=== PATIENT | female | born 1995 | race Caucasian/White ===

== ENCOUNTER → 2022-04-29 | Outpatient (CLI) | payer OTHER ==
--- NOTE | 2022-04-29 15:39 | Diagnostic Imaging Report ---
INDICATION: Jammed fourth finger. TIME OF EXAM: 2:55 p.m. FINDINGS: There is some irregularity and findings suggestive of an avulsion arising from the base of the middle phalanx of the fourth finger, volar side. No other fractures are seen. Metacarpals appear intact. IMPRESSION: Findings suggestive of an avulsion fracture at the base of the middle phalanx, fourth finger, volar side. Dictated by: Dictated on workstation # [id number]
== END ==
LOC: RAD 14:30
PROVIDERS: ATTEND Internal Medicine
DX: M79.644 Pain in right finger(s) (principal)
CPT/HCPCS: 73130